=== PATIENT | female | born 1985 | race Caucasian/White ===

== ENCOUNTER 2019-11-26 20:59 | Emergency (ER) | payer OTHER, MEDICAID, SELFPAY ==
[2019-11-26 21:01] VITALS: BP 127/68; PULSE 73; RESP 16; TEMP 36.9; O2SAT 98; BMI 32.5
--- NOTE | 2019-11-26 21:36 | ED.DENTAL ---
HPI - Dental/Oral General Chief complaint: Dental/Oral Stated complaint: states abcessed tooth Time Seen by Provider: 11/26/19 21:27 Source: patient History of Present Illness HPI Narrative: 34 y/o woman in recover from methamphetamine and opoiod use disorder presents with purulence draining from teeth right lower side. Multiple teeth are involved there is multiple caries and broken teeth. She is requesting no pain medication but would like help with antibiotics. She reports no fever and no specific facial swelling. Related Data Home Medications Medication Instructions Recorded Confirmed [PENICILLIN ] #0 06/01/17 oxycodone-acetaminophen [Percocet] #0 06/01/17 Previous Rx's Medication Instructions Recorded clindamycin HCl 300 mg PO Q6H #28 cap 06/01/17 amoxicillin 500 mg PO Q8H #21 cap 11/26/19 Allergies Allergy/AdvReac Type Severity Reaction Status Date / Time acetaminophen [From TYLENOL] AdvReac Unknown NAUSEA Unverified 09/24/17 12:49 Review of Systems Review of Systems Narrative: Pertinent positive and negative findings as per HPI Remainder of review of systems is otherwise unremarkable for Constitutional: Fevers, chills, weakness ENT: No sore throat, neck pain, ear pain CV: Chest pain, palpitations, dyspnea on exertion Respiratory: Cough, wheeze, dyspnea Patient History Medical History Methamphetamine use disorder, mild, in sustained remission (Acute) Opioid use disorder, mild, in sustained remission, on maintenance therapy (Acute) Social History Smoking Status: Current every day smoker Smoking Status: Current every day smoker alcohol intake frequency: 0-2 drinks per day Substance Use Type: does not use Exam Narrative Exam Narrative: General: Alert appropriate in no acute distress ENT: Multiple dental caries. Purulence drainage from multiple teeth bottom right side. No large fluctuant abscess no facial swelling no trismus. No cervical adenopathy Respiratory: Able to speak in full sentences, no obvious respiratory distress Skin: No obvious rashes, warm and dry Neurologic: Grossly intact no obvious asymmetries or abnormalities Psych, appropriate insight and affect, cooperative Initial Vital Signs Initial Vital Signs: Vital Signs Temperature 98.4 F 11/26/19 21:01 Pulse Rate 73 11/26/19 21:01 Respiratory Rate 16 11/26/19 21:01 Blood Pressure 127/68 11/26/19 21:01 Pulse Oximetry 98 11/26/19 21:01 Course Orders Ordered: Discontinued Medications Amoxicillin (Trimox) 500 mg PO NOW ONE Stop: 11/26/19 21:30 Last Admin: 11/26/19 21:39 Dose: 500 mg Documented by: Vital Signs Vital signs: Vital Signs - 8 hr 11/26/19 21:01 Temperature 98.4 F Pulse Rate 73 Respiratory Rate 16 Blood Pressure 127/68 Pulse Oximetry 98 Discharge Plan Departure Patient Disposition: Home Clinical Impression: Dental abscess Instructions: Tooth Abscess Activity Restrictions/Additional Instructions: Thank you for coming in today You do have some drainage around the teeth on the bottom right. I have given you a prescription for amoxicillin 500 mg 3 times a day for the next 7 days. It sounds like you understand that you do need to get into a dentist for definitive treatment. I hope you feel better. Congratulations on being clean since March! Prescriptions: New amoxicillin 500 mg capsule 500 mg PO Q8H Qty: 21 RF: 0 No Action [PENICILLIN ] Qty: 0 RF: 0 oxycodone-acetaminophen [Percocet] 5 MG/325 MG tablet Qty: 0 RF: 0 clindamycin HCl 300 MG capsule 300 mg PO Q6H Qty: 28 RF: 0
[2019-11-26] MEDS: AMOXICILLIN 250 MG CAPSULE 500 MG PO (21:39)
[2019-11-26 21:45] VITALS: BP 127/68; PULSE 70; O2SAT 98
== END 2019-11-26 21:45 | disposition home or self-care (01) ==
PROVIDERS: Emergency Provider Emergency Medicine
DX: K04.7 Periapical abscess without sinus (principal)
CPT/HCPCS: 99283

== ENCOUNTER 2019-12-27 20:27 | Emergency (ER) | payer OTHER, MEDICAID, SELFPAY ==
[2019-12-27 20:35] VITALS: BP 127/50; PULSE 60; RESP 16; TEMP 36.7; O2SAT 96; BMI 30.9
--- NOTE | 2019-12-27 20:50 | ED_ITS ---
HPI - Dental/Oral General Chief complaint: Dental/Oral Stated complaint: ABSCESS TOOTH LEFT SIDE Time Seen by Provider: 12/27/19 20:35 Source: patient Mode of arrival: Ambulatory Limitations: no limitations History of Present Illness HPI Narrative: 34F daily smoker with the chief complaint of left sided dental pain for the past few days. She denies N/V/D, and she's had no fever or chills. She does have a history of poor dentition. SHe has no trouble swallowing. She denies trauma or injury. MD Complaint: tooth pain Teeth map: 1. Onset (ago): day(s) Duration: constant Severity: mild Relieving factors: NSAIDs Exacerbating factors: chewing Context: history of dental caries and poor dental care Treatment prior to arrival: none Related Data Home Medications Medication Instructions Recorded Confirmed [PENICILLIN ] #0 06/01/17 oxycodone-acetaminophen [Percocet] #0 06/01/17 Previous Rx's Medication Instructions Recorded clindamycin HCl 300 mg PO Q6H #28 cap 06/01/17 amoxicillin 500 mg PO Q8H #21 cap 11/26/19 amoxicillin-pot clavulanate 1 tab PO BID #20 tab 12/27/19 [Augmentin] Allergies Allergy/AdvReac Type Severity Reaction Status Date / Time acetaminophen [From TYLENOL] AdvReac Unknown NAUSEA Unverified 09/24/17 12:49 Review of Systems Constitutional Constitutional: Denies chills, Denies fatigue, Denies fever(s), Denies frequent falls, Denies lethargy and Denies weakness Eyes Eyes: Denies change in vision, Denies eye discharge, Denies irritation and Denie s loss of vision ENT Ears, Nose, Mouth, and Throat: Denies change in voice, Reports dental pain, Denies dizziness, Denies neck pain, Denies sore throat and Denies throat swelling Cardiovascular Cardiovascular: Denies chest pain, Denies irregular heart rhythm, Denies lighthe adedness, Denies palpitations, Denies dyspnea, Denies dyspnea on exertion and Denies orthopnea Respiratory Respiratory: Denies cough, Denies dyspnea, Denies dyspnea on exertion and Denies wheezing Gastrointestinal Gastrointestinal: Denies abdominal pain, Denies change in bowel habits, Denies diarrhea, Denies nausea and Denies vomiting Musculoskeletal Musculoskeletal: Denies neck pain and Denies numbness Integumentary/Breasts Skin/Breast: Denies pruritus, Denies erythema, Denies rash and Denies wounds Neurologic Neurologic: Denies behavioral changes, Denies confusion, Denies dizziness, Denies frequent falls, Denies loss of vision, Denies numbness and Denies weakness Psychiatric Psychiatric: Denies anxiety, Denies behavioral changes, Denies confusion, Denies depression, Denies homicidal ideation and Denies suicidal ideation Endocrine Endocrine: Denies fatigue, Denies flushing and Denies palpitations Hematologic/Lymphatic Hematologic/Lymphatic: Denies easy bruising Allergic/Immunologic Allergic/Immunologic: Denies urticaria, Denies throat swelling and Denies wheezing Patient History Medical History Methamphetamine use disorder, mild, in sustained remission (Acute) Opioid use disorder, mild, in sustained remission, on maintenance therapy (Acute) Social History Smoking Status: Current every day smoker Smoking Status: Current every day smoker alcohol intake frequency: holidays/special occasions only Substance Use Type: former substance user Exam Narrative Exam Narrative: GEN: AOx3 and in mild distress EYES: Pupils are equal, round, and reactive to light and accommodation. Extraoccular muscles are intact bilaterally. There is no subconjunctival hemorrhage or exudate. FACE: minimal lower jaw swelling. No intra oral swelling, poor dentition. CHEST: Lungs are clear to auscultation bilaterally and free of wheezes, rales, or rhonchi. Heart rate is regular rhythm, there are no murmurs, clicks, rubs, or gallops. There is no chest wall tenderness. ABD: Abdomen is soft and nontender. There is no guarding or rebound. Bowel sounds are normal in all 4 quadrants. There is no mass or organomegaly. EXT: Full painless ROM of all extremities with no loss of sensation or strength. SKIN: Warm, pink, and dry. No erythema or rash Initial Vital Signs Initial Vital Signs: Vital Signs Temperature 98.0 F 12/27/19 20:35 Pulse Rate 60 12/27/19 20:35 Respiratory Rate 16 12/27/19 20:35 Blood Pressure 127/50 L 12/27/19 20:35 Pulse Oximetry 96 12/27/19 20:35 Course Course Course Narrative: offered dental block but she refuses. Orders Ordered: Discontinued Medications Amoxicillin/Clavulanate Potassium (Augmentin 875-125 Mg) 1 tab PO NOW ONE Stop: 12/27/19 21:34 Last Admin: 12/27/19 21:43 Dose: 1 tab Documented by: ZORAIDA Vital Signs Vital signs: Vital Signs - 8 hr 12/27/19 20:35 Temperature 98.0 F Pulse Rate 60 Respiratory Rate 16 Blood Pressure 127/50 L Pulse Oximetry 96 Discharge Plan Departure Patient Disposition: Home Clinical Impression: Dental abscess Discharge Date/Time: 12/27/19 21:46 Instructions: Tooth Abscess Activity Restrictions/Additional Instructions: *You have been diagnosed with [dental abscess ] *What to do: *Take medications as directed *Follow up with your primary care provider in 2-3 days, call for an appointment. Let them know you were seen in the Emergency Department and that we ask that you be seen in follow up *Return to ER if you should have any new, worsening or concerning symptoms Prescriptions: New amoxicillin-pot clavulanate [Augmentin] 875-125 mg tablet 1 tab PO BID Qty: 20 RF: 0 No Action [PENICILLIN ] Qty: 0 RF: 0 oxycodone-acetaminophen [Percocet] 5 MG/325 MG tablet Qty: 0 RF: 0 clindamycin HCl 300 MG capsule 300 mg PO Q6H Qty: 28 RF: 0 amoxicillin 500 mg capsule 500 mg PO Q8H Qty: 21 RF: 0 Referrals: Wiley Fitzpatrick, GABRIELA [Physician] -
[2019-12-27] MEDS: AMOXICILLIN/CLAV 875/125 MG 1 TAB PO (21:43)
== END 2019-12-27 21:46 | disposition home or self-care (01) ==
PROVIDERS: Emergency Provider Emergency Medicine
DX: K04.7 Periapical abscess without sinus (principal)
CPT/HCPCS: 99282; 99283

== ENCOUNTER 2020-11-23 16:35 | Emergency (ER) | payer OTHER, MEDICAID, SELFPAY ==
[2020-11-23 16:55] VITALS: BP 144/68; PULSE 66; RESP 14; TEMP 36.8; O2SAT 98; BMI 36.6
--- NOTE | 2020-11-23 17:27 | ED.DENTAL ---
HPI - Dental/Oral General Chief complaint: Dental/Oral Stated complaint: bad tooth, wants antibiotics Time Seen by Provider: 11/23/20 17:05 Source: patient Mode of arrival: Ambulatory Limitations: no limitations History of Present Illness HPI Narrative: 35-year-old woman with a history of opioid and methamphetamine use disorder currently in remission for 2 years in stable on methadone presents with increasing dental pain. She notes that all of her lower teeth are essentially decayed and most her broken at the root and she has an appointment with the dentist at [facility] on December 14. In the meantime she is having significantly increasing pain over the last couple of days. She is requesting help with antibiotics for presumed developing infections. She denies fever, cough, tenderness in the submandibular area, no vomiting, no diarrhea. Related Data Home Medications Medication Instructions Recorded Confirmed [PENICILLIN ] #0 06/01/17 oxycodone-acetaminophen [Percocet] #0 06/01/17 Previous Rx's Medication Instructions Recorded clindamycin HCl 300 mg PO Q6H #28 cap 06/01/17 amoxicillin 500 mg PO Q8H #21 cap 11/26/19 amoxicillin-pot clavulanate 1 tab PO BID #20 tab 12/27/19 [Augmentin] amoxicillin 500 mg PO BID #21 tab 11/23/20 amoxicillin 500 mg PO TID #21 cap 11/23/20 Allergies Allergy/AdvReac Type Severity Reaction Status Date / Time acetaminophen [From TYLENOL] AdvReac Unknown NAUSEA Verified 11/23/20 17:02 Review of Systems Review of Systems Narrative: Remainder of complete review of systems is otherwise unremarkable except for that included in the HPI. Patient History Medical History Methamphetamine use disorder, mild, in sustained remission Opioid use disorder, severe, in sustained remission, on maintenance therapy Social History Smoking Status: Current every day smoker Smoking Status: Current every day smoker alcohol intake frequency: holidays/special occasions only Substance Use Type: former substance user Exam Narrative Exam Narrative: General: Alert appropriate in no acute distress HEENT: Severe dental decay with multiple teeth and erythematous comes along the lower teeth, all involved. No submandibular adenopathy or swelling. Respiratory: Able to speak in full sentences, no obvious respiratory distress Skin: No obvious rashes, warm and dry Neurologic: Grossly intact no obvious asymmetries or abnormalities Psych: appropriate insight and affect, cooperative Initial Vital Signs Initial Vital Signs: Vital Signs Temperature 98.3 F 11/23/20 16:55 Pulse Rate 66 11/23/20 16:55 Respiratory Rate 14 11/23/20 16:55 Blood Pressure 144/68 H 11/23/20 16:55 Pulse Oximetry 98 11/23/20 16:55 Course Vital Signs Vital signs: Vital Signs - 8 hr 11/23/20 16:55 Temperature 98.3 F Pulse Rate 66 Respiratory Rate 14 Blood Pressure 144/68 H Pulse Oximetry 98 MDM - Dental/Oral MDM Narrative Medical decision making narrative: 35-year-old woman with severe became broken teeth of all the the lower teeth. No evidence of expanding abscess or Omi's angina. She is placed on amoxicillin, we discussed the use of dental wax and ibuprofen and Tylenol for pain. She is safe for home discharge Discharge Plan Departure Patient Disposition: Home Clinical Impression: Dental caries, Opioid use disorder, severe, in sustained remission, on maintenance therapy Instructions: DI for Dental Pain Activity Restrictions/Additional Instructions: Thank you for coming in today I am sorry you are having such a struggle with your teeth. I am glad that you are scheduled to see the dentist to have them all removed in December Using 400 mg of ibuprofen (2 [id number] pills) and 1 Tylenol every 6 hours can be very helpful in controlling pain. At the drugstore, look for dental wax. This is some sticky wax that you can put on top of the fractured tooth so that the nerve isn't as exposed.. It is not per minute but it can help reduce some of the pain that you experience when the nerve touches air or water. I am also going to give you a prescription for amoxicillin to help reduce overall infection level around all of your lower teath. This prescription was electronically transmitted to [facility] for you If you have worsening symptoms, please return to the ER I wish you the best Prescriptions: New amoxicillin 500 mg capsule 500 mg PO TID Qty: 21 RF: 0 amoxicillin 500 mg tablet 500 mg PO BID Qty: 21 RF: 0 No Action [PENICILLIN ] Qty: 0 RF: 0 oxycodone-acetaminophen [Percocet] 5 MG/325 MG tablet Qty: 0 RF: 0 clindamycin HCl 300 MG capsule 300 mg PO Q6H Qty: 28 RF: 0 amoxicillin 500 mg capsule 500 mg PO Q8H Qty: 21 RF: 0 amoxicillin-pot clavulanate [Augmentin] 875-125 mg tablet 1 tab PO BID Qty: 20 RF: 0
== END 2020-11-23 17:43 | disposition home or self-care (01) ==
PROVIDERS: Emergency Provider Emergency Medicine
DX: K02.9 Dental caries, unspecified (principal); F11.21 Opioid dependence, in remission
CPT/HCPCS: 99281

== ENCOUNTER → 2020-11-30 14:30 | Outpatient (CLI) | payer OTHER, MEDICAID, SELFPAY ==
[2020-11-30 14:56] LABS: Add Manual Diff / Slide Review NO; Basophils Absolute Auto 0 /uL (0-100); Basophils Percent Auto 0.4 % (0-2); Eosinophils Absolute Auto 200 /uL (0-450); Eosinophils Percent Auto 3.1 % (2-4); Hematocrit 38.7 % (36-46); Hemoglobin 13.3 g/dL (12.0-16.0); Lymphocytes Absolute Auto 2400 /uL (1100-4500); Lymphocytes Percent Auto 31.4 % (25-40); Mean Corpuscular HGB Conc 34.3 % (30-36); Mean Corpuscular Hemoglobin 29.8 PG (26-34); Mean Corpuscular Volume 86.9 fL (80-100); Monocytes Absolute Auto 600 /uL (0-900); Monocytes Percent Auto 7.6 % (3-14); Neutrophils Absolute Auto 4400 /uL (1500-7000); Neutrophils Percent Auto 57.5 % (50-75); Platelet Count 303 X10^3/uL (150-400); Red Blood Cell Count 4.46 X10^6/uL (4.0-5.2); Red Cell Distribution Width 13.5 % (11.6-14.8); White Blood Cell Count 7.7 X10^3/uL (4.5-11.0)
[2020-11-30 15:05] LABS: Alanine Aminotransferase 77 IU/L (<35); Albumin 4.7 g/dL (3.5-5.0); Albumin Globulin Ratio 1.3 (1.0-2.8); Alkaline Phosphatase 77 U/L (38-126); Aspartate Aminotransferase 60 IU/L (14-36); BUN Creatinine Ratio 14.6 (6-22); Bilirubin Total 0.8 mg/dL (0.2-1.3); Blood Urea Nitrogen 13 mg/dL (7-17); Calcium 9.7 mg/dL (8.4-10.2); Carbon Dioxide 26 mmol/L (22-32); Chloride 104 mmol/L (98-107); Estimated Glomerular Filt Rate > 60.0 mL/min (>60); Globulin 3.7 g/dL (1.7-4.1); Glucose 89 mg/dL (70-100); HEMOLYSIS < 15 (0-50); Sodium 138 mmol/L (137-145); Total Protein 8.4 g/dL (6.3-8.2)
[2020-11-30 15:47] LABS: Free T4, Direct Thyroxine 0.78 ng/dL (0.78-2.19)
[2020-11-30 16:01] LABS: Thyroid Stimulating Hormone 1.39 uIU/mL (0.47-4.68)
[2020-11-30 19:58] LABS: Potassium 4.4 mmol/L (3.4-5.1)
== END ==
PROVIDERS: PCP Registered Nurse; Referring Provider Registered Nurse; Visit Provider Registered Nurse
DX: Z00.00 Encounter for general adult medical examination without abnormal findings (principal); Z86.39 Personal history of other endocrine, nutritional and metabolic disease; F11.21 Opioid dependence, in remission
CPT/HCPCS: 36415; 80053; 84439; 84443; 85025

== ENCOUNTER → 2020-12-06 12:52 | Outpatient (CLI) | payer OTHER, MEDICAID, SELFPAY ==
--- NOTE | 2020-12-06 12:53 | DI.US.S_ITS ---
PROCEDURE: US ABDOMEN LIMITED INDICATIONS: elevated liver enzymes TECHNIQUE: Real-time focused scanning was performed of the abdomen, with image documentation. COMPARISON: None. FINDINGS: The liver is hyperechoic, consistent with fatty infiltration. No biliary distention or mass lesion is found. The gallbladder appears normal, the bile ducts measure up to 4 mm. The pancreas visualized appears normal. IMPRESSION: Moderate fatty infiltration throughout the liver, but no other source of abnormal liver function tests is found. Dictated by: Umair Soriano M.D. on 12/06/2020 at 15:09 Approved by: Umair Soriano M.D. on 12/06/2020 at 15:10
== END ==
PROVIDERS: PCP Registered Nurse; Referring Provider Registered Nurse; Visit Provider Registered Nurse
DX: R74.8 Abnormal levels of other serum enzymes (principal); K76.0 Fatty (change of) liver, not elsewhere classified
CPT/HCPCS: 76705

== ENCOUNTER → 2021-01-23 14:52 | Outpatient (CLI) | payer OTHER, MEDICAID, SELFPAY ==
--- NOTE | 2021-01-23 14:53 | DI.RAD.S_ITS ---
PROCEDURE: XR LUMBAR SPINE 2-3V INDICATIONS: lower back pain TECHNIQUE: 3 views of the lumbar spine were acquired. COMPARISON: None. FINDINGS: Bones: No acute fracture identified. Multilevel degenerative endplate sclerosis and spurring. Diffuse facet arthropathy. Mild diffuse narrowing of the lumbar disc spaces. Soft tissues: Overlying bowel gas pattern is normal. No suspicious soft tissue calcifications. IMPRESSION: Diffuse lumbar spondylosis and facet arthropathy. Dictated by: Jace Mustafa M.D. on 01/23/2021 at 16:55 Approved by: Jace Mustafa M.D. on 01/23/2021 at 16:56
== END ==
PROVIDERS: PCP Registered Nurse; Referring Provider Registered Nurse; Visit Provider Registered Nurse
DX: M54.5 Low back pain (principal); M47.816 Spondylosis without myelopathy or radiculopathy, lumbar region; G89.29 Other chronic pain
CPT/HCPCS: 72100

== ENCOUNTER 2023-04-24 10:28 | Emergency (ER) | payer OTHER, MEDICAID, SELFPAY ==
[2023-04-24 10:37] VITALS: BP 162/97; PULSE 72; RESP 17; TEMP 36.8; O2SAT 97; BMI 37.8
--- NOTE | 2023-04-24 11:14 | ED_ITS ---
HPI - URI/Sore Throat <Evelia Gray PA-C - Last Filed: 04/24/23 19:46> General Chief Complaint: Upper Respiratory Symptoms Stated Complaint: strep Time Seen by Provider: 04/24/23 11:11 Source: patient Mode of arrival: other History of Present Illness HPI Narrative: 38yo F presents with concern for upper respiratory symptoms. Patient states that she developed a mild sore throat about 3 days ago and then over the last couple of days it has progressed she has lost her voice initially she thought that it was because she has a football mom and has been shouting at games but then on the 2nd day her throat became painful. She states she has never had strep throat before. On the 2nd day she also developed generalized body aches and intermittent headaches as well as chest pain with coughing and deep breaths. She states her biggest complaint is chest discomfort that she says is present fairly consistently but is particularly noticable with coughing or taking a deep breath. She states that her child at home seems to be feeling sick as well but his symptoms are not as bad as hers. She has been taking ibuprofen for her body aches with some improvement and states that these are better today than they were yesterday. She states she is been trying not to cough because it is painful but that when she does cough it is productive. She also notes that she called her methadone clinic this morning and advised them of her symptoms, they sent her here for evaluation and hoped that she could also get her methadone here as she has daily methadone dosing she states her doses either 140 or 145 mg daily she is not 100% sure. She denies any shortness of breath with exertion or constant chest pain or pressure. She also denies dizziness, nausea, vomiting, diarrhea, ear pain, fever, chills, difficulty swallowing or any other symptoms. Related Data Home Medications Medication Instructions Recorded Confirmed Methadone PO DAILY 11/30/20 01/23/21 bupropion HCl 300 mg 24 hr tablet, 300 mg PO QAM 11/30/20 01/23/21 extended release (Wellbutrin XL) clonidine HCl 0.1 mg tablet 0.2 mg PO BID 11/30/20 01/23/21 Allergies Allergy/AdvReac Type Severity Reaction Status Date / Time acetaminophen [From TYLENOL] AdvReac Unknown NAUSEA Verified 04/24/23 10:42 Review of Systems <Evelia Gray PA-C - Last Filed: 04/24/23 19:46> Review of Systems Narrative: See HPI Patient History <Evelia Gray PA-C - Last Filed: 04/24/23 19:46> Medical History Chronic back pain Ovarian cyst (~2006) Adult general medical exam Opioid use disorder, severe, in sustained remission, on maintenance therapy Methamphetamine use disorder, mild, in sustained remission Surgical History Anesthesia History of section H/O laparoscopy (~2006) H/O left knee surgery Family History Mother Interstitial lung disease Social History Smoking Status: Current every day smoker Smoking Status: Current every day smoker tobacco type: vaping alcohol intake frequency: holidays/special occasions only Substance Use Type: former substance user Exam <Evelia Gray PA-C - Last Filed: 04/24/23 19:46> Narrative Exam Narrative: GENERAL: [38] year old patient appears stated age. Well-developed patient, in mild distress. HEAD: Atraumatic. Normocephalic. EYES: Pupils equal round and reactive. Extraocular motions intact. No scleral icterus. No injection or drainage. ENT: Nose without bleeding, purulent drainage. Throat with mild generalized erythema of the tonsillar pillar, without tonsillar hypertrophy or exudate. Airway patent. Bilateral ear canals normal in appearance some dry skin present. There is no retraction or bulging of the TMs there is slight injection present bilaterally. NECK: Trachea midline. Non tender, no lymphadenopathy noted CARDIOVASCULAR: Regular rate and rhythm without murmurs, gallops, or rubs. RESPIRATORY: Lung sounds very slightly coarse on auscultation. Moving air all rock. Breath sounds equal bilaterally. No wheezes, rales, or rhonchi. GASTROINTESTINAL: Abdomen protruberant, nondistended. EXTREMITIES: No edema or joint tenderness. NEURO: AOx3. SKIN: No rash or erythema of visible areas Initial Vital Signs Initial Vital Signs: Vital Signs Temperature 98.3 F 04/24/23 10:37 Pulse Rate 72 04/24/23 10:37 Respiratory Rate 17 04/24/23 10:37 Blood Pressure 162/97 H 04/24/23 10:37 Pulse Oximetry 97 04/24/23 10:37 Oxygen Delivery Method Room Air 04/24/23 10:37 <Jon Miller MD - Last Filed: 05/05/23 07:20> Initial Vital Signs Initial Vital Signs: Vital Signs Temperature 98.3 F 04/24/23 10:37 Pulse Rate 72 04/24/23 10:37 Respiratory Rate 17 04/24/23 10:37 Blood Pressure 162/97 H 04/24/23 10:37 Pulse Oximetry 97 04/24/23 10:37 Oxygen Delivery Method Room Air 04/24/23 10:37 Course <Evelia Gray PA-C - Last Filed: 04/24/23 19:46> Course Course Narrative: Called the [facility] regarding this patient and confirmed the story is consistent from patient's RN Ned (Padmini?) who I was transferred to. Spoke with him on the phone and he confirmed that they are closing early today and do hope that we can provide the patient's dose he confirmed it is 145 mg of methadone p.o. liquid daily and that she still needs her dose today; they are aware we plan to give it here at their request and taht patient will be coming in tomorrow to their clinic to fiber picker her additional doses for the week. He also noted that the primary reason he sent the patient here for evaluation for her upper respiratory symptoms was concern for cardiac as she had endorsed some chest pressure sensation. Did also speak with ER attending physician Paul regarding this patient and giving her methadone dose here. He was in agreement. [id number] Orders Ordered: Discontinued Medications Methadone HCl (Methadone Intensol 10 Mg/Ml Oral.Conc) 145 mg PO NOW ONE Stop: 04/24/23 11:43 Last Admin: 04/24/23 12:16 Dose: 145 mg Documented By: SAMMIE Vital Signs Vital signs: Vital Signs - 8 hr 04/24/23 13:08 Temperature 97.9 F Pulse Rate 80 Respiratory Rate 16 Blood Pressure 144/78 H Pulse Oximetry 99 Oxygen Delivery Method Room Air <Jon Miller MD - Last Filed: 05/05/23 07:20> Orders Ordered: Discontinued Medications Methadone HCl (Methadone Intensol 10 Mg/Ml Oral.Conc) 145 mg PO NOW ONE Stop: 04/24/23 11:43 Last Admin: 04/24/23 12:16 Dose: 145 mg Documented By: SAMMIE Vital Signs Vital signs: Vital Signs - 8 hr 04/24/23 13:08 Temperature 97.9 F Pulse Rate 80 Respiratory Rate 16 Blood Pressure 144/78 H Pulse Oximetry 99 Oxygen Delivery Method Room Air MDM - URI/Sore Throat <Evelia Gray PA-C - Last Filed: 04/24/23 19:46> Differential Diagnosis Differential diagnosis: Likely upper respiratory infection and pharyngitis Medical Records Attestation: I reviewed the patient's medical records. Lab Data Attestation: I reviewed the patient's lab results. Labs: Lab Results 04/24/23 Range/Units 10:42 SARS-CoV-2 (PCR) Negative (Negative) Influenza A (RT-PCR) Flu a negative (NEGATIVE) Influenza B (RT-PCR) Flu b negative (NEGATIVE) RSV (PCR) Negative (Negative) Group A Strep (PCR) Negative (Negative) Imaging Data Chest x-ray: My Impression: Agree with Radiology interpretation Radiologist's Impression: [place] [address] XRay Report Signed Patient: Stacy Ray MR#: [id number] : 1985 Acct:[id number] Age/Sex: 38 / F Date of Service: 04/24/23 Loc: ED Accession Number: [id number] Procedure: XR chest 2V Ordering Provider: Evelia Gray P.A-C PROCEDURE: XR CHEST 2V INDICATIONS: Chest pain w/ coughing/breathing TECHNIQUE: 2 views of the chest were acquired. COMPARISON: None. FINDINGS: Surgical changes and devices: None. Lungs and pleura: Lungs are clear. No pleural effusions or pneumothorax. Mediastinum: Mediastinal contours are normal. Heart size is normal. Bones and chest wall: No suspicious bony abnormalities. Soft tissues appear unremarkable. IMPRESSION: No acute cardiopulmonary abnormality is seen. Dictated by: Scott Hazel M.D. on 04/24/2023 at 12:18 Approved by: Scott Hazel M.D. on 04/24/2023 at 12:19 ECG Data Attestation: I personally reviewed and interpreted this ECG as follows: Interpretation: Normal sinus rhythm heart rate 65 QTC 428 ms, no ectopy or ST changes noted. EKG also reviewed by attending Dr Miller. [facility] Narrative Medical decision making narrative: Is a 38-year-old woman who is on methadone daily seen at the [facility] for this, who presents today with concern for 3 days of upper respiratory symptoms with sore throat, laryngitis with partial loss of voice, congestion headaches cough and chest pain with coughing and deep breaths. Initially swab for strep and COVID flu and RSV which all returned negative. Did discuss this patient with her nurse at the clinic where she gets her daily methadone dose. And her daily dose is provided today in the emergency department as the [facility] is closing early and they request this. Patient was adamant that her pain is not a constant pain and is brought on by coughing and deep breaths. Did obtain a chest x-ray and EKG which were both unremarkable. Given her other symptoms are consistent with viral URI and she has no persistent chest pain, no shortness of breath, with an unremarkable EKG and chest x-ray additional labs /cardiac studies are not obtained today. Did rehab/pre vocational counselor the patient if she has any new or worsening symptoms such as shortness of breath or persistent chest pain or generalized worsening she should absolutely seek re- evaluation. <Jon Miller MD - Last Filed: 05/05/23 07:20> Lab Data Labs: Lab Results 04/24/23 Range/Units 10:42 SARS-CoV-2 (PCR) Negative (Negative) Influenza A (RT-PCR) Flu a negative (NEGATIVE) Influenza B (RT-PCR) Flu b negative (NEGATIVE) RSV (PCR) Negative (Negative) Group A Strep (PCR) Negative (Negative) Discharge Plan Departure Patient Disposition: Home Clinical Impression: Opioid use disorder in remission, Opioid use disorder, severe, on maintenance therapy URI (upper respiratory infection) Qualifiers: URI type: unspecified viral URI Qualified Code(s): J06.9 - Acute upper respiratory infection, unspecified Pharyngitis Qualifiers: Pharyngitis/tonsillitis etiology: unspecified etiology Qualified Code(s): J02.9 - Acute pharyngitis, unspecified Activity Restrictions/Additional Instructions: *You have been diagnosed with [ Upper respiratory infection] *What to do: *Please continue to take your regular medications as directed. [ ] New medication prescriptions sent to your pharmacy: [] [ ] New medication written as a paper prescription [ ] No new medications given *Please follow up with your primary care provider in 2-3 days, call for an appointment. Let them know you were seen in the Emergency Department and that we ask that you be seen in follow up. We will electronically transmit a record of today's note if your PCP is in our system. You have been ill for few days with upper respiratory symptoms and some generalized body aches. We did test you for COVID flu a, flu B and RSV today and these all came back negative. We also did a swab for strep which came back negative on a rapid test. Your symptoms and exam today are suspicious for a viral illness. It is important that if you do have worsening symptoms such as if you develop shortness of breath, if you feel that your chest discomfort becomes constant or worsens, you make sure that you are re-evaluated/seek medical care immediately. We also did an EKG and a chest x-ray today and they both look normal. We discussed a prescription for cough medicine but you declined this today as he feel you have [id number] medicines at home that will work for you. Also after speaking with your nurse at the [facility] we did provide you with your daily dose of methadone here in the emergency department today. Please follow up with them as planned tomorrow, and follow up with your primary care provider as needed regarding your current symptoms or return to the emergency department if worsening. *If you do not have a primary care provider please contact the [facility] Resource line at [phone]. They will ask some questions about your medical history and help get you set up with a doctor in the community. *Return to Emergency Department if you should have any new, worsening or concerning symptoms, such as [fever greater than 101 F, shaking chills, worsening pain, persistent vomiting or other bothersome symptoms] Prescriptions: No Action Methadone 200 mg liquid PO DAILY bupropion HCl [Wellbutrin XL] 300 mg tablet extended release 24 hr 300 mg PO QAM clonidine HCl 0.1 mg tablet 0.2 mg PO BID Referrals: Lang Conte ARNP [Primary Care Provider] - Stand Alone Forms: Patient Portal/API ED Sign-out <Jon iMller MD - Last Filed: 05/05/23 07:20> Cosign ED Attending Cosignature Attestation: I was immediately available in the department for consultation. ?This documentation has been reviewed and I agree with assessment and plan. Supervised by Jon Miller MD
[2023-04-24 11:29] LABS: Strep Grp A by PCR Rapid Negative (Negative)
--- NOTE | 2023-04-24 11:38 | PC.NURSE ---
pt. complaining of chest pain with coughing . states it has been there for months. provider aware, ekg ordered
--- NOTE | 2023-04-24 11:47 | DI.RAD.S_ITS ---
PROCEDURE: XR CHEST 2V INDICATIONS: Chest pain w/ coughing/breathing TECHNIQUE: 2 views of the chest were acquired. COMPARISON: None. FINDINGS: Surgical changes and devices: None. Lungs and pleura: Lungs are clear. No pleural effusions or pneumothorax. Mediastinum: Mediastinal contours are normal. Heart size is normal. Bones and chest wall: No suspicious bony abnormalities. Soft tissues appear unremarkable. IMPRESSION: No acute cardiopulmonary abnormality is seen. Dictated by: Scott Hazel M.D. on 04/24/2023 at 12:18 Approved by: Scott Hazel M.D. on 04/24/2023 at 12:19
[2023-04-24 11:50] LABS: Influenza A - CEPHEID Flu A NEGATIVE (NEGATIVE); Influenza B - CEPHEID Flu B NEGATIVE (NEGATIVE); Respiratory Syncytial Virus Negative (Negative)
[2023-04-24 11:57] LABS: COVID-19 CEPHEID 4-PLEX PCR Negative (Negative)
[2023-04-24] MEDS: METHADONE INTENSOL 10 MG/ML ORAL.CONC 145 MG PO (12:16)
[2023-04-24 13:08] VITALS: BP 144/78; PULSE 80; RESP 16; TEMP 36.6; O2SAT 99
== END 2023-04-24 12:56 | disposition home or self-care (01) ==
PROVIDERS: Emergency Medicine; Emergency Provider Student in an Organized Health Care Education/Training Program; PCP Registered Nurse
DX: J06.9 Acute upper respiratory infection, unspecified (principal); J02.9 Acute pharyngitis, unspecified; R07.9 Chest pain, unspecified; F11.20 Opioid dependence, uncomplicated; Z20.822 Contact with and (suspected) exposure to COVID-19
CPT/HCPCS: 0241U; 71046; 87651; 93005; 99283; 99284

== ENCOUNTER 2023-09-10 00:07 | Emergency (ER) | payer SELFPAY ==
[2023-09-10 00:10] VITALS: BP 168/82; PULSE 110; RESP 18; TEMP 36.5; O2SAT 98; BMI 37.8
--- NOTE | 2023-09-10 00:27 | ED_ITS ---
HPI - Extremity Problem General Chief complaint: Extremity Problem,Nontraumatic Stated complaint: legs are swollen and hard and red Time Seen by Provider: 09/10/23 00:10 Source: patient Mode of arrival: Ambulatory History of Present Illness HPI Narrative: Patient is a 38-year-old female. Stated that up until few weeks ago she has been sober. She states she relapsed and smoked fentanyl and methamphetamine. Her last use was 4 days ago. She states over the past couple days she is noticed increased swelling and redness to both of her legs. They extend from her feet up to her mid thighs. She states that they are not particularly painful just feel very full. No fevers. No trauma. No chest pain. No shortness of breath. Has not had anything like this in the past. Related Data Home Medications Medication Instructions Recorded Confirmed Methadone PO DAILY 11/30/20 01/23/21 bupropion HCl 300 mg 24 hr tablet, 300 mg PO QAM 11/30/20 01/23/21 extended release (Wellbutrin XL) clonidine HCl 0.1 mg tablet 0.2 mg PO BID 11/30/20 01/23/21 Previous Rx's Medication Instructions Recorded furosemide 20 mg tablet (Lasix) 20 mg PO DAILY #14 tabs 09/10/23 Allergies Allergy/AdvReac Type Severity Reaction Status Date / Time acetaminophen [From TYLENOL] AdvReac Unknown NAUSEA Verified 04/24/23 10:42 Review of Systems Review of Systems ROS Unobtainable: All systems reviewed & are unremarkable except as noted in HPI and below Patient History Medical History Chronic back pain Ovarian cyst (~2006) Adult general medical exam Opioid use disorder, severe, in sustained remission, on maintenance therapy Methamphetamine use disorder, mild, in sustained remission Surgical History Anesthesia History of section H/O laparoscopy (~2006) H/O left knee surgery Family History Mother Interstitial lung disease Social History Smoking Status: Current every day smoker Smoking Status: Current every day smoker tobacco type: vaping alcohol intake frequency: holidays/special occasions only Substance Use Type: heroin, methamphetamine and other Exam Initial Vital Signs Initial Vital Signs: Vital Signs Temperature 97.7 F 09/10/23 00:10 Pulse Rate 110 H 09/10/23 00:10 Respiratory Rate 18 09/10/23 00:10 Blood Pressure 168/82 H 09/10/23 00:10 Pulse Oximetry 98 09/10/23 00:10 Oxygen Delivery Method Room Air 09/10/23 00:10 Resp Effort & Inspection: normal respiratory effort Auscultation: clear to auscultation bilaterally Cardio Rate: regular rate Skin Other: Redness to bilateral lower extremities from her toes up to her mid thighs. Not warm to touch. Has a small blister on the anterior portion of the right cano. Neuro General: patient alert, patient awake and moves all extremities Extrem General: capillary refill normal and edema Course Orders Ordered: ED Orders 09/10/23 00:30 Complete Blood Count AUTO DIFF Stat Comprehensive Metabolic Panel Stat Lipase Stat Vital Signs Vital signs: Vital Signs - 8 hr 09/10/23 00:10 Temperature 97.7 F Pulse Rate 110 H Respiratory Rate 18 Blood Pressure 168/82 H Pulse Oximetry 98 Oxygen Delivery Method Room Air MDM - Extremity (Nontraumatic) Lab Data 09/10/23 00:30 09/10/23 00:30 Labs: Lab Results 09/10/23 Range/Units 00:30 WBC 7.1 (4.5-11.0) X10^3/uL RBC 4.31 (4.0-5.2) X10^6/uL Hgb 12.3 (12.0-16.0) g/dL Hct 36.1 (36-46) % MCV 83.8 (80-100) fL MCH 28.5 (26-34) PG MCHC 34.0 (30-36) % RDW 14.3 (11.6-14.8) % Plt Count 300 (150-400) X10^3/uL Neut % (Auto) 56.5 (50-75) % Lymph % (Auto) 30.2 (25-40) % Marion % (Auto) 7.9 (3-14) % Eos % (Auto) 4.3 H (2-4) % Baso % (Auto) 1.1 (0-2) % Neut # (Auto) 4000 (6807-8349) /uL Lymph # (Auto) 2200 (5476-9779) /uL Marion # (Auto) 600 (0-900) /uL Eos # (Auto) 300 (0-450) /uL Baso # (Auto) 100 (0-100) /uL Sodium 139 (137-145) mmol/L Potassium 3.8 (3.4-5.1) mmol/L Chloride 104 (98-107) mmol/L Carbon Dioxide 27 (22-32) mmol/L BUN 15 (7-17) mg/dL Creatinine 0.61 (0.52-1.04) mg/dL Estimated GFR > 60 (>60) mL/min BUN/Creatinine Ratio 24.6 H (6-22) Glucose 107 H (70-100) mg/dL Calcium 9.1 (8.4-10.2) mg/dL Total Bilirubin 0.7 (0.2-1.3) mg/dL AST 35 (14-36) IU/L ALT 34 (<35) IU/L Alkaline Phosphatase 83 (38-126) U/L Total Protein 7.7 (6.3-8.2) g/dL Albumin 4.3 (3.5-5.0) g/dL Globulin 3.4 (1.7-4.1) g/dL Albumin/Globulin Ratio 1.3 (1.0-2.8) Lipase 150 (23-300) U/L [facility] Narrative Medical decision making narrative: Patient has bilateral lower extremity swelling and redness. She is afebrile. No fevers. The skin is not warm to the touch. It is equal bilateral and goes from her toes up to her mid thighs. I do have low suspicion for cellulitis based on the fact that it is bilateral in the appearance of the legs. I have low suspicion that this is heart failure. Low suspicion that this is DVT also given the fact that it is bilateral. I suspect that it is related to her methamphetamine/fentanyl use. Her labs are unremarkable. Kidney functions unremarkable. No leukocytosis. No indication for radiologic studies today based on her physical exam. We will place her on Lasix for the next couple days to try to help with the edema. Also discussed other treatments to include keeping her legs elevated. She was given return precautions and follow-up instructions. She expressed understanding and agreement. Discharge Plan Departure Patient Disposition: Home Clinical Impression: Edema, peripheral Instructions: DI for Peripheral Edema -- Bilateral Activity Restrictions/Additional Instructions: Use the Lasix/furosemide like we discussed. Try to keep your legs elevated. Contact your primary care doctor for follow-up. Return to the emergency department for new or worsening symptoms. Prescriptions: New furosemide [Lasix] 20 mg tablet 20 mg PO DAILY Qty: 14 0RF No Action Methadone 200 mg liquid PO DAILY bupropion HCl [Wellbutrin XL] 300 mg tablet extended release 24 hr 300 mg PO QAM clonidine HCl 0.1 mg tablet 0.2 mg PO BID Stand Alone Forms: Patient Portal/API
[2023-09-10 00:43] LABS: Add Manual Diff / Slide Review NO; Basophils Absolute Auto 100 /uL (0-100); Basophils Percent Auto 1.1 % (0-2); Eosinophils Absolute Auto 300 /uL (0-450); Eosinophils Percent Auto 4.3 % (2-4); Hematocrit 36.1 % (36-46); Hemoglobin 12.3 g/dL (12.0-16.0); Lymphocytes Absolute Auto 2200 /uL (1100-4500); Lymphocytes Percent Auto 30.2 % (25-40); Mean Corpuscular Hemoglobin 28.5 PG (26-34); Mean Corpuscular Volume 83.8 fL (80-100); Monocytes Absolute Auto 600 /uL (0-900); Monocytes Percent Auto 7.9 % (3-14); Neutrophils Absolute Auto 4000 /uL (1500-7000); Neutrophils Percent Auto 56.5 % (50-75); Platelet Count 300 X10^3/uL (150-400); Red Blood Cell Count 4.31 X10^6/uL (4.0-5.2); Red Cell Distribution Width 14.3 % (11.6-14.8); White Blood Cell Count 7.1 X10^3/uL (4.5-11.0)
[2023-09-10 00:54] LABS: Alanine Aminotransferase 34 IU/L (<35); Albumin 4.3 g/dL (3.5-5.0); Albumin Globulin Ratio 1.3 (1.0-2.8); Alkaline Phosphatase 83 U/L (38-126); Aspartate Aminotransferase 35 IU/L (14-36); BUN Creatinine Ratio 24.6 (6-22); Bilirubin Total 0.7 mg/dL (0.2-1.3); Blood Urea Nitrogen 15 mg/dL (7-17); Calcium 9.1 mg/dL (8.4-10.2); Carbon Dioxide 27 mmol/L (22-32); Chloride 104 mmol/L (98-107); Estimated Glomerular Filt Rate > 60 mL/min (>60); Globulin 3.4 g/dL (1.7-4.1); Glucose 107 mg/dL (70-100); HEMOLYSIS < 15 (0-50); Lipase 150 U/L (23-300); Potassium 3.8 mmol/L (3.4-5.1); Sodium 139 mmol/L (137-145); Total Protein 7.7 g/dL (6.3-8.2)
[2023-09-10 01:18] VITALS: BP 159/66; PULSE 99; RESP 18; O2SAT 99
== END 2023-09-10 01:19 | disposition home or self-care (01) ==
PROVIDERS: Emergency Provider Emergency Medicine
DX: R60.0 Localized edema (principal)
CPT/HCPCS: 80053; 83690; 85025; 99281; 99284

== ENCOUNTER → 2024-06-23 07:19 | Outpatient (CLI) | payer OTHER, SELFPAY ==
--- NOTE | 2024-06-23 07:22 | DI.US.S_ITS ---
PROCEDURE: US ARTERIAL DUPLEX LE RT INDICATIONS: NON HEALING WOUND TECHNIQUE: Color and pulse Doppler interrogation was performed of the right lower extremity arterial system, with image documentation. COMPARISON: None. FINDINGS: Common femoral artery: 337 cm/sec, with monophasic flow. Deep femoral artery: 221 cm/sec, with monophasic flow. Proximal superficial femoral artery: 225 cm/sec, with monophasic flow. Mid superficial femoral artery: 198 cm/sec, with monophasic flow. Distal superficial femoral artery: 188 cm/sec, with monophasic flow. Popliteal artery: 133 cm/sec, with monophasic flow. Posterior tibial artery: 80 cm/sec, with monophasic flow. Anterior tibial artery/dorsalis pedis: 98 cm/sec, with monophasic flow. Herrera-scale imaging description: Monophasic low resistance waveforms in the common femoral are consistent with hemodynamically significant aortoiliac stenotic or occlusive disease. All waveforms monophasic low resistance. No identified stenosis on this study. IMPRESSION: Findings are highly suspicious for hemodynamically significant aortoiliac or stenotic disease. Comment: Recommend CT angiography of the aorta and pelvis and lower extremity runoff vessels. Dictated by: Alonso Cummings M.D. on 06/23/2024 at 19:13 Approved by: Alonso Cummings M.D. on 06/23/2024 at 19:16
== END ==
LOC: US 07:21
PROVIDERS: Referring Provider Urology; Visit Provider Urology
DX: L97.421 Non-pressure chronic ulcer of left heel and midfoot limited to breakdown of skin (principal)
CPT/HCPCS: 93926

== ENCOUNTER → 2024-06-24 10:48 | Outpatient (CLI) | payer OTHER, SELFPAY ==
--- NOTE | 2024-06-24 10:49 | DI.ECHO.S_ITS ---
[facility] : : [address] : : [place] : : [id number] : : Phone: [phone] Echocardiogram Report + + :Name: KAYDEN DOOLEY Study Date: 06/24/2024 Height: 64 in : :[facility] ReadingLocation: Weight: 230 lb : : Gender: Female BSA: 2.1 m2 : :: 1985 Age: 39 yrs BP: 172/91 mmHg: :Reason For Study: LOWER EXTREMITY EDEMA, SHORTNESS OF BREATH : :Ordering Physician: GIOVANNY, : :LEATHA Salazar Performed By: Elmo Walker : :Referring: UNSPECIFIED : + + Interpretation Summary The left ventricle appears normal in size, wall thickness, and systolic function without any focal wall motion abnormalities. The ejection fraction is estimated to be 55-60%. Diastolic parameters suggest probable normal left ventricular diastolic function and normal filling pressures. The right ventricle is at the upper limits of normal in size. The right ventricular systolic function is normal. The left atrium is borderline dilated. There is no significant valvular heart disease. The aortic root is normal size. Procedure: A two-dimensional transthoracic echocardiogram with color flow and Doppler was performed. The study quality was technically good. There is no prior echocardiogram noted for this patient. The patient was in normal sinus rhythm during the exam. Left Ventricle: The left ventricle appears normal in size, wall thickness, and systolic function without any focal wall motion abnormalities. There is no ventricular septal defect visualized. The ejection fraction is estimated to be 55-60%. Diastolic parameters suggest probable normal left ventricular diastolic function and normal filling pressures. Right Ventricle: The right ventricle is at the upper limits of normal in size. The right ventricular systolic function is normal. Atria: The left atrium is borderline dilated. Right atrial size is normal. There is no Doppler evidence for an interatrial shunt. Mitral Valve: The mitral valve leaflets appear normal. There is no evidence of stenosis, fluttering, or prolapse. There is trace mitral regurgitation. Aortic Valve: The aortic valve is not well visualized. The aortic valve is grossly normal. No aortic regurgitation is present. Tricuspid Valve: The tricuspid valve is not well visualized, but is grossly normal. There is a trace or physiologic amount of tricuspid regurgitation. Pulmonic Valve: The pulmonic valve is not well seen, but is grossly normal. There is no pulmonic valvular regurgitation. There is no significant valvular heart disease. Great Vessels: The aortic root is normal size. The dimensions of the ascending aorta are normal. The pulmonary artery is normal size. The inferior vena cava was not visualized. Pericardium/ Pleura There is no pericardial effusion. MMode/2D Measurements & Calculations LVIDd: 5.3 cm LVOT diam: 1.8 cm LVIDs: 3.1 cm Ao root diam: 2.6 cm FS: 40.5 % asc Aorta Diam: 3.2 cm EPSS: 0.32 cm IVSd: 0.86 cm LVPWd: 0.87 cm LV davidson. diameter/BSA (cm/m^2): 2.5 LV sys. diameter/BSA (cm/m^2): 1.5 LA A2 area: 20.2 cm2 RA long axis: 4.9 cm LA A4 area: 22.4 cm2 RA area: 16.1 cm2 LA length (vol): 5.7 cm RA vol: 45.4 ml LA vol: 67.0 ml RA : 21.9 ml/m2 LA vol index: 32.3 ml/m2 RVD1 (basal): 4.1 cm RVD2 (mid): 3.6 cm TAPSE: 3.1 cm Doppler Measurements & Calculations Ao V2 max: 165.0 cm/sec LVOT Max Jalil: 123.1 cm/sec Ao V2 mean: 117.7 cm/sec LV V1 max P.1 mmHg Ao max P.9 mmHg LV V1 VTI: 30.5 cm Ao mean P.2 mmHg EDMOND(I,D): 2.4 cm2 Ao V2 VTI: 34.0 cm EDMOND(V,D): 2.0 cm2 sev ratio: 0.90 EDMOND indexed to BSA (cm^2/m^2): 1.2 MV E max jalil: 84.3 cm/sec TR max jalil: 239.5 cm/sec MV A max jalli: 65.5 cm/sec TR max P.9 mmHg MV E/A: 1.3 PA V2 max: 109.1 cm/sec Med Peak E' Jalil: 11.9 cm/sec PA V2 mean: 79.3 cm/sec E/E' med: 7.1 PA mean P.8 mmHg Lat Peak E' Jalil: 12.1 cm/sec PA pr(Accel): 22.5 mmHg E/E' lat: 7.0 E/e' average: 7.0 MV dec time: 0.23 sec SV(LVOT): 81.9 ml Reading Physician:10:09 PM
== END ==
PROVIDERS: Referring Provider Urology; Visit Provider Urology
DX: R07.9 Chest pain, unspecified (principal); R60.0 Localized edema
CPT/HCPCS: 93306

== ENCOUNTER → 2024-10-07 13:05 | Outpatient (CLI) | payer OTHER, SELFPAY ==
--- NOTE | 2024-10-07 13:07 | DI.CT.S_ITS ---
PROCEDURE: CT ANGIO ABD AORTA RUNOFF INDICATIONS: Unspecified open wound, unspecified lower leg, previous duplex right lower extremity arterial ultrasound suggested hemodynamically significant stenotic or occlusive disease of the aortoiliac system based on low resistance monophasic waveforms from the common femoral inferiorly. TECHNIQUE: After the administration of intravenous contrast, 2.5 mm sections acquired from T12 to the feet, with optional delayed image acquisition from the knees to the feet. 3-dimensional maximum intensity projection (MIP) coronal and sagittal reformats, and/or 3-dimensional volume rendering reformatting was then performed. For radiation dose reduction, the following was used: automated exposure control. COMPARISON: [facility], , ARTERIAL DUPLEX LE RT, 06/23/2024, 7:31. FINDINGS: Image Quality: Diagnostic. Abdominal aorta: Wide patency. No dissection. No aneurysm. Splanchnic vessels: Widely patent Right lower extremity: Widely patent Left lower extremity: Widely patent Lower Chest: No significant findings. ABDOMEN: Liver: No solid mass. Moderate diffuse hepatic steatosis. Gallbladder: No radiopaque gallstones or wall thickening. Biliary ducts: No biliary dilation. Pancreas: No ductal dilation. Spleen: Size is within normal limits. Adrenal Glands: No adrenal nodules. Kidneys and Ureters: No hydronephrosis. No solid mass. No complex renal cystic lesion which requires follow up. Stomach and Bowel: Normal colonic caliber, without significant wall thickening. Peritoneum: No abnormal intraperitoneal fluid. No free air. Ventral Wall: No hernia. Abdominal Nodes: No retroperitoneal or mesenteric adenopathy by size criteria. Vessels: Aorta and inferior vena cava are normal in size. PELVIS: Pelvic Organs: Unremarkable. Bladder: Unremarkable. Pelvic Nodes: No enlarged lymph nodes. Miscellaneous: No inguinal hernias are seen. Bones: No aggressive osseous abnormality. IMPRESSION: 1. The previous duplex arterial ultrasound suggested hemodynamically significant aortoiliac disease. However, the aorta and bilateral iliac arteries are widely patent. 2. Widely patent bilateral lower extremity arterial vessels. 3. Moderate diffuse hepatic steatosis. 4. No other significant findings in the abdomen and pelvis. Dictated by: Alonso Cummings M.D. on 10/11/2024 at 8:49 Approved by: Alonso Cummings M.D. on 10/11/2024 at 8:56
== END ==
PROVIDERS: Referring Provider Physician Assistant; Visit Provider Physician Assistant
DX: S81.809A Unspecified open wound, unspecified lower leg, initial encounter (principal); K76.0 Fatty (change of) liver, not elsewhere classified
CPT/HCPCS: 75635; Q9967